=== PATIENT | female | born 1995 | race Caucasian/White ===

== ENCOUNTER → 2017-02-10 | Outpatient (CLI) | payer BC ==
[~2017-02-10] MED LIST: FIORIC PO; FIORTAB4 PO; LORTA5 PO; TOPRAMAX PO; Z.0.BCPILL PO; ZOFR4TAB3 SL
== END ==
LOC: HPND 07:48
PROVIDERS: ATTEND Obstetrics & Gynecology
DX: O99.352 Diseases of the nervous system complicating pregnancy, second trimester (principal); O35.1XX0 Maternal care for (suspected) chromosomal abnormality in fetus, not applicable or unspecified; O43.192 Other malformation of placenta, second trimester; M32.9 Systemic lupus erythematosus, unspecified; Z3A.18 18 weeks gestation of pregnancy
CPT/HCPCS: 76811

== ENCOUNTER → 2017-03-10 | Outpatient (CLI) | payer BC | LOC: HPND 07:49 | PROVIDERS: ATTEND Obstetrics & Gynecology | DX: O99.89 Other specified diseases and conditions complicating pregnancy, childbirth and the puerperium (principal); M32.9 Systemic lupus erythematosus, unspecified; O99.352 Diseases of the nervous system complicating pregnancy, second trimester; R56.9 Unspecified convulsions; O43.192 Other malformation of placenta, second trimester; O35.1XX0 Maternal care for (suspected) chromosomal abnormality in fetus, not applicable or unspecified; Z3A.00 Weeks of gestation of pregnancy not specified | CPT/HCPCS: 76816; 76825; 76827; 93325 ==